=== PATIENT | male | born 1955 | race Caucasian/White ===

== ENCOUNTER 2021-07-11 03:34 | Emergency (ER) | payer MEDICARE ==
[~2021-07-11] VITALS: Ht 182.9 cm; Wt 93.0 kg
--- NOTE | 2021-07-11 03:55 | NUR ---
BIB [facility] FOR BILATERAL EYE PAIN 6/10 DESCRIBED BURNING. PT UNABLE TO OPEN EYES STATES "IT FEELS LIKE I GOT SPRAYED WITH PEPPER SPRAY". REPORTS TO HAVE BEEN DRINKING ALCOHOL AND A POSSIBLE FALL, IS UNABLE TO RECALL RECENT EVENTS. DENIES ANY COMPLAINT BESIDES EYE BURNING. PLACED ON MONITOR V/S STABLE.
--- NOTE | 2021-07-11 04:12 | NUR ---
PT TAKEN TO CT
--- NOTE | 2021-07-11 04:53 | NUR ---
MARCIN LENS FLUSH APPLIED TO EYES BILATERALLY
--- NOTE | 2021-07-11 05:27 | NUR ---
MARCIN LENS FLUSH TOLERATED WELL
[2021-07-11] MEDS ORDERED: FLUORESCEIN SODIUM OPHTH 1 EA STRIP ONE (05:44)
[2021-07-11] MEDS ORDERED: TETRAcaine 5 ML BOTTLE EACHEYE ONE (06:00)
--- NOTE | 2021-07-11 07:05 | NUR ---
PT'S LANDLORD CAME TO RN PSYCHIATRIC PT. PT STATED HE WANTED TO LEAVE. PT ABLE TO AMBULATED OUT OF ED WITH STEADY GAIT. DENIES ANY PAIN.
[2021-07-11 07:06] VITALS: BP 135/75
== END 2021-07-11 07:06 | disposition home or self-care (01) ==
LOC: ER 03:41
DX: F10.129 Alcohol abuse with intoxication, unspecified (principal); H57.13 Ocular pain, bilateral; Y90.9 Presence of alcohol in blood, level not specified
CPT/HCPCS: 70450; 72125; 99285; J7030 ×2

== ENCOUNTER 2025-09-02 20:30 | Emergency (ER) | payer MEDICARE ==
[~2025-09-02] VITALS: Ht 182.9 cm; Wt 81.6 kg
[2025-09-02] MEDS ORDERED: KETOROLAC TROMETHAMINE 15 MG/ML VIAL ONE (21:20)
[2025-09-02] MEDS: IV NS 0.9% 500 ML BAG IV ONE (21:30)
[2025-09-02] MEDS: KETOROLAC TROMETHAMINE 15 MG/ML VIAL IV ONE (21:34)
[2025-09-02] MEDS ORDERED: ONDANSETRON HCL/PF 4 MG/2 ML VIAL ONE (21:37)
[2025-09-02] MEDS ORDERED: GLUCAGON,HUMAN RECOMBINANT 1 MG/VIAL VIAL ONE (21:37)
[2025-09-02] MEDS ORDERED: WATER FOR INJECTION,STERILE 10 ML ONE (21:38)
[2025-09-02 21:40] LABS: PLATELET COUNT (AUTO) 249 K/uL (150-450); RED BLOOD CELL COUNT(AUTO) 5.32 MIL/uL (4.5-6.0); RED CELL DISTRIBUTION WIDTH 13.1 % (11.5-15.0); WHITE BLOOD COUNT (AUTO) 8.9 K/uL (4.3-11.0)
[2025-09-02 21:47] LABS: CALCIUM, SERUM 9.4 mg/dL (8.5-10.1); CREATININE 0.9 mg/dL (0.6-1.3); SODIUM SERUM 145.0 mmol/L (136-145); UREA NITROGEN, BLOOD 17.0 mg/dL (7-18)
[2025-09-02] MEDS: GLUCAGON,HUMAN RECOMBINANT 1 MG/VIAL VIAL IV ONE (21:50)
[2025-09-02] MEDS: ONDANSETRON HCL/PF - ER 4 MG/2 ML VIAL IV ONE (21:50)
[2025-09-02 21:56] LABS: INR 1.03 (0.91-1.10)
[2025-09-03] MEDS ORDERED: phenytoin SODIUM IV 250 MG/5 ML VIAL IV ONE (00:20)
[2025-09-03] MEDS: IV NS 0.9% 1,000 ML BAG IV ONE (00:23)
[2025-09-03] MEDS: phenytoin SODIUM IV 500 MG in IV NS 0.9% 50 ML IV ONE (00:23)
[2025-09-03 02:00] VITALS: BP 112/64; TEMP 98.4; O2SAT 96
== END 2025-09-03 04:10 | disposition short-term general hospital (02) ==
LOC: ER 20:36
DX: T18.128A Food in esophagus causing other injury, initial encounter (principal); K22.5 Diverticulum of esophagus, acquired; I10 Essential (primary) hypertension; C15.9 Malignant neoplasm of esophagus, unspecified; Z79.899 Other long term (current) drug therapy; W44.F3XA Food entering into or through a natural orifice, initial encounter; Y93.89 Activity, other specified; Y92.89 Other specified places as the place of occurrence of the external cause; Y99.9 Unspecified external cause status
CPT/HCPCS: 99291; 96375; 71250; 93005; 85025; 80048; 36415; 85730; 96365; J1610; J1885; J2405 ×2; J7040; J1165 ×2; J7030